=== PATIENT | female | born 1965 | race Caucasian/White ===

== ENCOUNTER 2018-01-16 11:17 | Emergency (ER) | payer OTHER ==
[2018-01-16 13:44] LABS: ADD MAN DIFF? NO
[2018-01-16 13:46] LABS: WHITE BLOOD COUNT 5.4 10^3/ul (4.8-10.8)
[2018-01-16 13:46] LABS: BASOPHILS % 0.2 % (0.0-2.0); EOSINOPHILS # 0.1 10^3/ul (0.0-0.5); EOSINOPHILS % 2.2 % (0.0-7.0); IMMATURE GRANS #M 0.02 10^3/ul; IMMATURE GRANS % (M) 0.4 %; LYMPHOCYTES # 1.3 10^3/ul (0.8-2.9); LYMPHOCYTES % 24.3 % (15.0-51.0); MEAN CORPUSCULAR HEMOGLOBIN 32.1 pg (29.0-33.0); MEAN CORPUSCULAR HGB CONC 33.3 g/dl (32.0-37.0); MEAN CORPUSCULAR VOLUME 96.3 fl (82.0-101.0); MEAN PLATELET VOLUME 9.7 fl (7.4-10.4); MONOCYTE # 0.3 10^3/ul (0.3-0.9); NEUTROPHIL # 3.7 10^3/ul (1.6-7.5); NEUTROPHILS % 67.9 % (39.0-77.0); PLATELET COUNT 207 10^3/UL (140-415); RED BLOOD COUNT 3.74 10^6/ul (4.20-5.40); RED CELL DISTRIBUTION WIDTH 14.8 % (11.5-14.5)
[2018-01-16 14:05] LABS: ALANINE AMINOTRANSFERASE 21 IU/L (13-69); ALBUMIN 3.8 g/dl (3.3-4.9); ALBUMIN/GLOBULIN RATIO 1.11; ALKALINE PHOSPHATASE 113 IU/L (42-121); ANION GAP 12 (8-16); ASPARTATE AMINO TRANSFERASE 37 IU/L (15-46); BILIRUBIN,INDIRECT 0.6 mg/dl (0-1.1); BILIRUBIN,TOTAL 0.6 mg/dl (0.2-1.3); BLOOD UREA NITROGEN 11 mg/dl (7-20); CALCIUM 9.6 mg/dl (8.4-10.2); CARBON DIOXIDE 24 mmol/L (21-31); CHLORIDE 104 mmol/L (97-110); CREATINE KINASE 70 IU/L (23-200); CREATININE 0.93 mg/dl (0.44-1.00); GLUCOSE 100 mg/dl (70-220); INR 0.87; PARTIAL THROMBOPLASTIN TIME 24.1 Sec (25.0-35.0); POTASSIUM 3.5 mmol/L (3.5-5.1); PROTIME 11.9 Sec (11.9-14.9); PT RATIO 0.9; SODIUM 136 mmol/L (135-144); TOTAL PROTEIN 7.2 g/dl (6.1-8.1)
[2018-01-16 14:16] LABS: TROPONIN-I < 0.010 ng/ml (0.000-0.120)
[2018-01-16] MEDS: HYDROmorphONE 1 MG/ML SYG IV (14:17)
[2018-01-16] MEDS: SOD CHLORIDE 0.9% 1,000 ML IV ×2 (14:18→16:12)
[2018-01-16] MEDS: ONDANSETRON 4 MG INJ IV (14:18)
[2018-01-16] MEDS: LORAZEPAM 2 MG INJ IV (16:13)
== END 2018-01-16 18:40 | disposition home or self-care (01) ==
LOC: E/R 11:17
DX: E86.0 Dehydration (principal); S06.0X1A Concussion with loss of consciousness of 30 minutes or less, initial encounter; S89.92XA Unspecified injury of left lower leg, initial encounter; I10 Essential (primary) hypertension; F17.210 Nicotine dependence, cigarettes, uncomplicated; X58.XXXA Exposure to other specified factors, initial encounter; Y92.9 Unspecified place or not applicable
CPT/HCPCS: 70450; 73590; 80053; 82550; 84484; 85025; 85610; 85730; 93005; 96374; 96375; 99285-25

== ENCOUNTER 2018-02-22 12:12 | Emergency (ER) | payer OTHER ==
[2018-02-22] MEDS: ACETAMINOPHEN 500 MG TAB PO (14:12)
== END 2018-02-22 14:44 | disposition home or self-care (01) ==
LOC: FTE 14:44
DX: M25.561 Pain in right knee (principal); M25.562 Pain in left knee; I10 Essential (primary) hypertension; Z87.891 Personal history of nicotine dependence
CPT/HCPCS: 99282; Z7502

== ENCOUNTER 2018-03-09 10:31 | Emergency (ER) | payer OTHER ==
[2018-03-09] MEDS: SOD CHLORIDE 0.9% 1,000 ML IV (11:19)
[2018-03-09] MEDS: ONDANSETRON 4 MG INJ IV (11:19)
[2018-03-09 11:21] LABS: ADD MAN DIFF? NO
[2018-03-09 11:27] LABS: BASOPHILS % 0.3 % (0.0-2.0); EOSINOPHILS % 0.5 % (0.0-7.0); HEMOGLOBIN 13.3 g/dl (12.0-16.0); LYMPHOCYTES # 0.9 10^3/ul (0.8-2.9); LYMPHOCYTES % 15.2 % (15.0-51.0); MEAN CORPUSCULAR HEMOGLOBIN 31.8 pg (29.0-33.0); MEAN CORPUSCULAR HGB CONC 33.3 g/dl (32.0-37.0); MEAN CORPUSCULAR VOLUME 95.7 fl (82.0-101.0); MEAN PLATELET VOLUME 9.9 fl (7.4-10.4); MONOCYTE # 0.2 10^3/ul (0.3-0.9); MONOCYTES % 3.9 % (0.0-11.0); NEUTROPHIL # 4.9 10^3/ul (1.6-7.5); NEUTROPHILS % 79.8 % (39.0-77.0); PLATELET COUNT 402 10^3/UL (140-415); RED BLOOD COUNT 4.18 10^6/ul (4.20-5.40); RED CELL DISTRIBUTION WIDTH 15.1 % (11.5-14.5)
[2018-03-09 11:27] LABS: WHITE BLOOD COUNT 6.1 10^3/ul (4.8-10.8)
[2018-03-09] MEDS: KETOROLAC 30 MG INJ IV (11:48)
[2018-03-09 11:49] LABS: ALANINE AMINOTRANSFERASE 26 IU/L (13-69); ALBUMIN 3.4 g/dl (3.3-4.9); ALBUMIN/GLOBULIN RATIO 0.94; ALKALINE PHOSPHATASE 209 IU/L (42-121); ANION GAP 15 (8-16); ASPARTATE AMINO TRANSFERASE 23 IU/L (15-46); BILIRUBIN,INDIRECT 0.2 mg/dl (0-1.1); BILIRUBIN,TOTAL 0.2 mg/dl (0.2-1.3); BLOOD UREA NITROGEN 15 mg/dl (7-20); CALCIUM 10.5 mg/dl (8.4-10.2); CARBON DIOXIDE 26 mmol/L (21-31); CHLORIDE 103 mmol/L (97-110); CREATININE 0.73 mg/dl (0.44-1.00); GLUCOSE 114 mg/dl (70-220); LIPASE 103 U/L (23-300); POTASSIUM 3.6 mmol/L (3.5-5.1); SODIUM 140 mmol/L (135-144)
[2018-03-09 11:51] LABS: CREATINE KINASE < 20 IU/L (23-200)
[2018-03-09 12:01] LABS: CK-MB < 0.22 ng/ml (0.0-2.4); TROPONIN-I < 0.012 ng/ml (0.000-0.120)
[2018-03-09 12:14] LABS: ADD UMIC YES; UR ASCORBIC ACID NEGATIVE (NEGATIVE); UR BACTERIA FEW /HPF (NONE SEEN); UR BILIRUBIN (Dip) NEGATIVE (NEGATIVE); UR BLOOD (Dip) NEGATIVE (NEGATIVE); UR CLARITY CLOUDY (CLEAR); UR COLOR AMBER (YELLOW); UR GLUCOSE (Dip) NEGATIVE (NEGATIVE); UR KETONES (Dip) NEGATIVE (NEGATIVE); UR LEUKOCYTE ESTERASE (Dip) 1+ Leu/ul (NEGATIVE); UR MUCUS FEW /HPF (NONE SEEN); UR NITRITE (Dip) POSITIVE (NEGATIVE); UR RBC 3 /HPF (0-5); UR SPECIFIC GRAVITY (Dip) 1.017 (1.003-1.030); UR SQUAMOUS EPITHELIAL CELL FEW /HPF (FEW); UR TOTAL PROTEIN (Dip) 1+ mg/dl (NEGATIVE); UR UROBILINOGEN (Dip) NEGATIVE (NEGATIVE); UR WBC 6 /HPF (0-5)
[2018-03-09] MEDS: CEPHALEXIN 500 MG CAP PO (12:35)
[2018-03-09] MEDS: HYDROCODONE/APAP (5/325) TAB PO ×2 (12:35→13:59)
[2018-03-09 13:20] LABS: ERYTHROCYTE SEDIMENTATION RATE 53 mm/Hr (0-30)
[2018-03-09] MEDS: DEXAMETHASONE 10 MG/ML 1 ML INJ IV (13:50)
== END 2018-03-09 14:13 | disposition home or self-care (01) ==
LOC: FTE 10:31
DX: M25.531 Pain in right wrist (principal); F17.210 Nicotine dependence, cigarettes, uncomplicated
CPT/HCPCS: 36415; 80053; 81001; 81025; 82550; 82553; 83690; 84484; 85025; 85651; 96361; 96374; 96375; 99284-25

== ENCOUNTER 2018-12-21 16:41 | Emergency (ER) | payer OTHER ==
[2018-12-21] MEDS: ACETAMINOPHEN 500 MG TAB PO (17:32)
== END 2018-12-21 19:10 | disposition home or self-care (01) ==
LOC: FTE 16:41
DX: M79.644 Pain in right finger(s) (principal); M79.645 Pain in left finger(s); I10 Essential (primary) hypertension; F17.210 Nicotine dependence, cigarettes, uncomplicated
CPT/HCPCS: 29130; 73130-LT; 73130-RT; 99284-25

== ENCOUNTER 2019-01-17 09:16 | Emergency (ER) | payer OTHER ==
[2019-01-17] MEDS: HYDROCODONE/APAP (5/325) TAB PO (10:47)
[2019-01-17 12:59] LABS: ADD MAN DIFF? NO
[2019-01-17 13:09] LABS: BASOPHILS % 0.5 % (0.0-2.0); EOSINOPHILS # 0.1 10^3/ul (0.0-0.5); EOSINOPHILS % 1.5 % (0.0-7.0); HEMATOCRIT 36.1 % (37.0-47.0); HEMOGLOBIN 11.7 g/dl (12.0-16.0); LYMPHOCYTES # 0.9 10^3/ul (0.8-2.9); LYMPHOCYTES % 22.3 % (15.0-51.0); MEAN CORPUSCULAR HEMOGLOBIN 33.5 pg (29.0-33.0); MEAN CORPUSCULAR HGB CONC 32.4 g/dl (32.0-37.0); MEAN CORPUSCULAR VOLUME 103.4 fl (82.0-101.0); MEAN PLATELET VOLUME 10.4 fl (7.4-10.4); MONOCYTE # 0.2 10^3/ul (0.3-0.9); MONOCYTES % 4.7 % (0.0-11.0); NEUTROPHIL # 2.9 10^3/ul (1.6-7.5); NEUTROPHILS % 70.8 % (39.0-77.0); PLATELET COUNT 198 10^3/UL (140-415); RED BLOOD COUNT 3.49 10^6/ul (4.20-5.40); RED CELL DISTRIBUTION WIDTH 15.3 % (11.5-14.5)
[2019-01-17] MEDS: CEFAZOLIN 1 GM INJ IV (13:10)
[2019-01-17 13:27] LABS: ANION GAP 6 (5-13); BLOOD UREA NITROGEN 13 mg/dl (7-20); CALCIUM 9.6 mg/dl (8.4-10.2); CARBON DIOXIDE 28 mmol/L (21-31); CHLORIDE 102 mmol/L (97-110); CREATININE 0.81 mg/dl (0.44-1.00); Estimated GFR > 60 mL/min (>60); GLUCOSE 93 mg/dl (70-220); POTASSIUM 4.2 mmol/L (3.5-5.1); SODIUM 136 mmol/L (135-144)
[2019-01-17] MEDS: ONDANSETRON 4 MG INJ IV (15:03)
[2019-01-17] MEDS: morphine 4 MG/ML VIAL IV (15:03)
== END 2019-01-17 15:44 | disposition short-term general hospital (02) ==
LOC: E/R 15:44
DX: S02.40EB Zygomatic fracture, right side, initial encounter for open fracture (principal); I10 Essential (primary) hypertension; S09.90XA Unspecified injury of head, initial encounter; S40.011A Contusion of right shoulder, initial encounter; S80.01XA Contusion of right knee, initial encounter; S02.31XB Fracture of orbital floor, right side, initial encounter for open fracture; S02.40CB Maxillary fracture, right side, initial encounter for open fracture; V17.4XXA Pedal cycle driver injured in collision with fixed or stationary object in traffic accident, initial encounter; Z87.891 Personal history of nicotine dependence
CPT/HCPCS: 70450; 70486; 72125; 73030-RT; 73564; 73610-RT; 80048; 85025; 96374; 96375; 99285-25